=== PATIENT | female | born 1995 | race Caucasian/White ===

== ENCOUNTER → 2016-09-12 | Outpatient (CLI) | payer OTHER ==
[~2016-09-12] MED LIST: COLACE 100MG C100 MG PO; IBUPROFEN800 MG PO; NORCO 5-325 TA1 EACH PO; PRAMET FA TAB1 EA PO
== END ==
LOC: US 09-08 11:30
DX: Q51.2 Other doubling of uterus (principal); N39.3 Stress incontinence (female) (male); R10.2 Pelvic and perineal pain

== ENCOUNTER → 2016-10-10 | Outpatient (CLI) | payer OTHER ==
[2016-10-10 08:59] LABS: HEMOGLOBIN 12.1 gm/dl (12.3-15.3); RED BLOOD COUNT 4.76 M/UL (4.00-5.10); WHITE BLOOD COUNT 5.4 K/UL (4.5-11.0)
== END ==
LOC: OPSV2 07:48
PROVIDERS: Obstetrics & Gynecology
DX: Z01.812 Encounter for preprocedural laboratory examination (principal); R10.2 Pelvic and perineal pain
CPT/HCPCS: 36415; 81001; 85025

== ENCOUNTER 2016-10-16 07:12 | Day surgery (SDC) | payer OTHER ==
[~2016-10-16] VITALS: Ht 152.4 cm; Wt 72.6 kg
[~2016-10-16 07:12] MED LIST changes: -IBUPROFEN800 MG PO
[2016-10-16] MEDS ORDERED: IBUPROFEN800 MG PO (07:48)
[2016-10-16 13:39] LABS: HEMOGLOBIN 11.5 gm/dl (12.3-15.3); RED BLOOD COUNT 4.48 M/UL (4.00-5.10); WHITE BLOOD COUNT 8.8 K/UL (4.5-11.0)
[2016-10-16 13:54] LABS: BUN/CREATININE RATIO 20 (0-10)
[2016-10-17 04:28] LABS: HEMOGLOBIN 10.4 gm/dl (12.3-15.3)
[2016-10-17 04:52] LABS: BUN/CREATININE RATIO 17 (0-10)
--- NOTE | 2016-10-17 19:00 | NUR ---
REPORT WAS CALLED TO ; [facility] ROOM 777. PATIENT LEFT BY EMS.
== END 2016-10-17 18:48 | disposition other institution (70) ==
LOC: OR 07:12 → MED SURG 4 14:37 → OR 10-17 18:48
PROVIDERS: Obstetrics & Gynecology
PROC: 0UTC4ZZ Resection of Cervix, Percutaneous Endoscopic Approach (ICD-10-PCS; 2016-10-16)
PROC: 0UT74ZZ Resection of Bilateral Fallopian Tubes, Percutaneous Endoscopic Approach (ICD-10-PCS; 2016-10-16)
PROC: 0UT94ZZ Resection of Uterus, Percutaneous Endoscopic Approach (ICD-10-PCS; principal; 2016-10-16 09:00)
DX: N72 Inflammatory disease of cervix uteri (principal); N83.8 Other noninflammatory disorders of ovary, fallopian tube and broad ligament; Q51.2 Other doubling of uterus; M41.9 Scoliosis, unspecified; Z87.01 Personal history of pneumonia (recurrent); Z90.49 Acquired absence of other specified parts of digestive tract; Z90.89 Acquired absence of other organs; Z79.1 Long term (current) use of non-steroidal anti-inflammatories (NSAID)
CPT/HCPCS: 36415; 78707; 80048; 84703; 85014; 85018; 85025; A9562; C1769; J0690; J1100; J1885; J2250; J2270; J2405; J2710; J2795; J3010; J7120

== ENCOUNTER → 2016-10-20 | Outpatient (CLI) | payer OTHER ==
[~2016-10-20] MED LIST changes: +IBUPROFEN800 MG PO
== END ==
LOC: US 16:30
DX: R10.9 Unspecified abdominal pain (principal); T83.122A Displacement of indwelling ureteral stent, initial encounter
CPT/HCPCS: 76775